=== PATIENT | male | born 2000 | race African-American/Black ===

== ENCOUNTER 2022-01-29 14:43 | Inpatient (IN) | payer OTHER ==
[2022-01-29 18:41] LABS: BASO % 0.4 % (0-2.0); EOS % 0.2 % (0-4.5); HEMATOCRIT 45.3 % (35.4-49); HEMOGLOBIN 14.8 GM/dL (11.7-16.9); LYMPH % 28.5 % (8-40); MCH 29.4 pg (25.7-33.7); MCHC 32.7 g/dl (32.0-35.9); MEAN CELL VOLUME 89.8 fl (80-96); MEAN PLT VOLUME 8.9 fl (7.5-11.1); MONO % 3.8 % (3.8-10.2); NEUT % 67.1 % (42.8-82.8); PLATELET COUNT 287 10^3/uL (134-434); RBC 5.04 M/mm3 (4.00-5.60); WHITE BLOOD COUNT 6.7 K/mm3 (4.0-10.0)
[2022-01-29 19:15] LABS: BILIRUBIN,TOTAL 0.8 mg/dL (0.2-1); BLOOD UREA NITROGEN 9.9 mg/dL (7-18); CALCIUM 9.4 mg/dL (8.5-10.1); CREATININE 0.7 mg/dL (0.55-1.3); MAGNESIUM 2.1 mg/dL (1.8-2.4); TOT PROT 7.6 g/dl (6.4-8.2)
[2022-01-29 19:32] LABS: PH,URINE 8.5 (5.0-8.0); URINE APPEARANCE CLOUDY; URINE BILIRUBIN NEGATIVE (NEGATIVE); URINE COLOR YELLOW; URINE GLUCOSE (UA) NEGATIVE (NEGATIVE); URINE KETONE NEGATIVE (NEGATIVE); URINE LEUK ESTERASE NEGATIVE (NEGATIVE); URINE NITRITE NEGATIVE (NEGATIVE); URINE PROTEIN NEGATIVE (NEGATIVE)
[2022-01-29] MEDS ORDERED: morphine CARPU-JECT 2 MG/1 ML DISP.SYRIN IVPUSH ONE (20:22)
[2022-01-29] MEDS ORDERED: DOCUSATE SODIUM 100 MG CAPSULE (FP) PO ONE ×2 (22:01)
[2022-01-29] MEDS ORDERED: methylPREDNISolone NA SUCC 125 MG/2 ML VIAL IVPUSH ONE (23:17)
[2022-01-29] MEDS ORDERED: methylPREDNISolone NA SUCC 1000 MG/8 ML VIAL ONE (23:28)
[2022-01-30 04:08] VITALS: BMI 20.8
[2022-01-30 04:26] VITALS: RESP 18
[2022-01-30] MEDS: BACLOFEN 10 MG TABLET (FP) PO SCH ×4 (05:36→12:33)
[2022-01-30] MEDS ORDERED: ACETAMINOPHEN 325 MG TABLET (FP) PO PRN ×4 (09:02→10:23)
[2022-01-30] MEDS ORDERED: BACLOFEN 10 MG TABLET (FP) PO SCH (09:13)
[2022-01-30] MEDS ORDERED: PRAMIPEXOLE DIHYDROCHLORIDE 0.25 MG TABLET PO SCH (10:00)
[2022-01-30] MEDS ORDERED: ENOXAPARIN NA (PORCINE) 40 MG/0.4 ML DISP.SYRIN SQ SCH (10:00)
[2022-01-30] MEDS ORDERED: oxyCODONE HCL 5 MG TABLET PO PRN ×2 (10:20→10:21)
[2022-01-30 11:42] LABS: HEMATOCRIT 42.8 % (35.4-49); HEMOGLOBIN 14.2 GM/dL (11.7-16.9); MCH 29.7 pg (25.7-33.7); MCHC 33.2 g/dl (32.0-35.9); MEAN CELL VOLUME 89.3 fl (80-96); MEAN PLT VOLUME 8.3 fl (7.5-11.1); PLATELET COUNT 255 10^3/uL (134-434); RBC 4.79 M/mm3 (4.00-5.60); WHITE BLOOD COUNT 11.5 K/mm3 (4.0-10.0)
[2022-01-30 12:12] LABS: ANISOCYTOSIS 0; CREATININE 0.9 mg/dL (0.55-1.3); HELMET CELLS 0; HOWELL-JOLLY BODIES 0; MACROCYTOSIS 0; OVALOCYTE 0; PHOSPHOROUS 2.4 mg/dL (2.5-4.9); ROULEAU 0; SICKELED CELLS 0; TARGET CELLS 0; TEAR DROP CELLS 0; TOXIC GRANULATION 0
[2022-01-30 12:13] LABS: TOT PROT 7.4 g/dl (6.4-8.2)
[2022-01-30 12:15] LABS: ALBUMIN 3.9 g/dl (3.4-5.0)
[2022-01-30 12:17] LABS: CALCIUM 9.9 mg/dL (8.5-10.1)
[2022-01-30 12:27] LABS: BILIRUBIN,TOTAL 0.4 mg/dL (0.2-1); MAGNESIUM 1.9 mg/dL (1.8-2.4)
[2022-01-30 13:24] VITALS: BP 130/76; PULSE 80; TEMP 99.1
[2022-01-30] MEDS ORDERED: methylPREDNISolone NA SUCC 125 MG/2 ML VIAL IVPUSH SCH (23:00)
== END 2022-01-30 12:15 | disposition left against medical advice (07) | DRG 43 ==
LOC: JER 14:43 → JERBED 01-30 01:05 → J5S 01-30 03:41
PROVIDERS: ADMIT Internal Medicine; ATTEND Nurse Practitioner Family
DX: G35 Multiple sclerosis (principal); N31.9 Neuromuscular dysfunction of bladder, unspecified; G89.29 Other chronic pain; M79.604 Pain in right leg; M79.605 Pain in left leg; G82.20 Paraplegia, unspecified; G95.9 Disease of spinal cord, unspecified; I51.7 Cardiomegaly; R00.1 Bradycardia, unspecified; R15.9 Full incontinence of feces; Z99.3 Dependence on wheelchair
CPT/HCPCS: 0241U-QW; 36415; 70553-TC; 71045-TC-FY; 80053; 81003; 82306; 82607; 83735; 84100; 84443; 85025; 87086; 87798; 93005; 93010; 97161-GP; 99285-25; A9579; J0475